=== PATIENT | female | born 1965 | race Two or more races ===

== ENCOUNTER 2017-03-03 16:30 | Emergency (ER) | payer OTHER ==
[~2017-03-03] VITALS: Ht 165.1 cm; Wt 158.0 kg
[2017-03-03 17:08] VITALS: BP 139/90
[2017-03-03] MEDS ORDERED: OXYcodone/APAP 5/325MG TABLET ONE (18:28)
[2017-03-03] MEDS ORDERED: OXYcodone 5 MG/5 ML ORAL.SOL UDC PO ONE (18:30)
== END 2017-03-03 19:00 | disposition home or self-care (01) ==
LOC: ED 18:20
DX: K01.1 Impacted teeth (principal); K02.9 Dental caries, unspecified; E03.9 Hypothyroidism, unspecified
CPT/HCPCS: 99283